=== PATIENT | female | born 1975 | race Caucasian/White ===

== ENCOUNTER → 2024-08-09 08:56 | Outpatient (REF) | payer OTHER, SELFPAY | LOC: HWRAD 08:56 | PROVIDERS: ATTENDING PHYSICIAN Physician Assistant Medical | DX: M25.552 Pain in left hip (principal); M25.562 Pain in left knee; M79.672 Pain in left foot | CPT/HCPCS: 73080; 73564; 73630 ==

== ENCOUNTER → 2024-11-20 07:32 | Outpatient (REF) | payer OTHER, SELFPAY | LOC: PAVMRI 07:32 | PROVIDERS: ATTENDING PHYSICIAN Physician Assistant Medical | DX: M77.32 Calcaneal spur, left foot (principal) | CPT/HCPCS: 73718 ==

== ENCOUNTER → 2025-02-21 18:21 | Outpatient (REF) | payer OTHER, SELFPAY | LOC: MRI 3T 18:21 | PROVIDERS: ATTENDING PHYSICIAN Specialist; FAMILY PHYSICIAN Physician Assistant Medical | DX: K76.89 Other specified diseases of liver (principal) | CPT/HCPCS: 74183; A9585 ==